=== PATIENT | male | born 1980 | race Caucasian/White ===

== ENCOUNTER 2022-03-01 21:23 | Emergency (ER) | payer BC ==
[~2022-03-01] VITALS: Ht 162.6 cm; Wt 99.8 kg
[2022-03-01 21:33] VITALS: BP_SYST 106
--- NOTE | 2022-03-01 21:36 | NUR ---
PT HERE C/O LAC TO LT WRIST. PT STATED THAT HE ACCIDENTALLY LACERATE HIS WRIST WHILE OPENING BOX. BLEEDING CONTROLLED AT THIS TIME, DERESSING DRY AND INTACT PMH;THYROID, HYPERLIPIDEMIA PT AAOX4, NO SOB NOTED AND NAD. PENDING MD AREVALO
--- NOTE | 2022-03-01 21:45 | NUR ---
Patient A/Ox4, VSS, ambulatory, resp even and unlabored. Patient lying in bed with side rails raised. Nad noted at this time.
[2022-03-01] MEDS ORDERED: DIPHTH,PERTUSS(ACELL),TET VAC 0.5 ML VIAL (Tdap) I.M. ONE (22:15)
[2022-03-01] MEDS ORDERED: LIDOCAINE 1% 10 MG/ML, 20 ML MDV INJ ONE (22:15)
--- NOTE | 2022-03-01 22:15 | NUR ---
Laceration repair kit set up at bedside.
--- NOTE | 2022-03-01 22:30 | NUR ---
ER MD Olmos at bedside performing laceration repair.
[2022-03-01] MEDS ORDERED: BACITRACIN 1 GM OINT TP ONE (22:45)
[2022-03-01 22:50] VITALS: BP_SYST 106
--- NOTE | 2022-03-01 22:50 | NUR ---
Patient given written and verbal discharge instructions and verbalizes understanding. ER MD discussed with patient the results and treatment provided. Patient in stable condition. ID arm band removed. Patient educated on pain management and to follow up with PMD. Pain Scale 0/10. Opportunity for questions provided and answered.
== END 2022-03-01 22:50 | disposition home or self-care (01) ==
LOC: SED 21:23
DX: S61.512A Laceration without foreign body of left wrist, initial encounter (principal); Z79.899 Other long term (current) drug therapy; W26.8XXA Contact with other sharp object(s), not elsewhere classified, initial encounter; Y93.89 Activity, other specified; Y92.89 Other specified places as the place of occurrence of the external cause; Y99.8 Other external cause status
CPT/HCPCS: 99283; 90715; 90471; 12001; J2001